=== PATIENT | male | born 1990 | race Caucasian/White ===

== ENCOUNTER 2024-06-11 13:25 | Emergency (ER) | payer OTHER, SELFPAY ==
[2024-06-11 13:36] VITALS: BP 150/78; PULSE 88; RESP 18; TEMP 36.7; O2SAT 100
--- NOTE | 2024-06-11 13:56 | ED_ITS ---
HPI - General Adult General Chief complaint: Extremity Injury, Lower Stated complaint: LT foot Wound Time Seen by Provider: 06/11/24 13:56 Source: patient, RN notes reviewed and old records reviewed Mode of arrival: ambulatory Limitations: no limitations History of Present Illness HPI narrative: 33-year-old male with a history of diabetes presents with left foot laceration. States that he cut it a piece of furniture in the bathroom yesterday morning, over 24 hours ago. Bleeding is controlled. Area is already healing. Patient declined tetanus shot. Unsure of last tetanus Related Data Home Medications Medication Instructions Recorded Confirmed escitalopram oxalate 20 mg tablet 20 mg DIRECTED 06/11/24 06/11/24 insulin aspart (niacinamide) 1 unit DIRECTED 06/11/24 06/11/24 (U-100) 100 unit/mL subcutaneous solution (Fiasp U-100 Insulin) rosuvastatin 10 mg tablet 10 mg DIRECTED 06/11/24 06/11/24 semaglutide (weight loss) 0.25 0.25 mg subcut DIRECTED 06/11/24 06/11/24 mg/0.5 mL subcutaneous pen injector (Wegovy) Allergies Allergy/AdvReac Type Severity Reaction Status Date / Time amoxicillin Allergy Intermediate Hives Verified 06/11/24 13:50 Review of Systems Review of Systems: All systems reviewed & are unremarkable except as noted in HPI and below Constitutional: Constitutional: Reports no additional constitutional complaints ENT: Reports system reviewed and no additional complaints, except as documented Cardiovascular: Cardiovascular: Reports no additional cardiovascular complaints, Denies chest pain and Denies dyspnea Respiratory: Respiratory: Reports no additional respiratory complaints, Denies chest congestion, Denies cough and Denies dyspnea Gastrointestinal: Gastrointestinal: Reports no additional gastrointestinal complaints, Denies abdominal pain, Denies nausea and Denies vomiting Musculoskeletal: Musculoskeletal: Reports no additional musculoskeletal complaints Integumentary/Breasts: Skin/Breast: Reports as per [facility] Past Medical History Medical History (Updated 06/11/24 @ 20:31 by Juana Walsh APRN) Diabetes Comments At the time of my signature, I reviewed and agree with the nursing past medical, surgical, social, and family history. There is no relevant family history pertinent to the patient complaint. Exam Const: General: cooperative, healthy appearing, comfortable, no acute distress, well developed, alert and well nourished Nutritional Appearance: well nourished and obese Orientation/consciousness: patient oriented x3 Limitations: no limitations HENMT: Head: normal to inspection Ears: hearing grossly normal bilaterally and external ears normal Face/Nose/Sinus: Normal external nose present, normal facial exam and face symmetric Face and sinus: normal facial exam and face symmetric Eyes: General: appearance normal, both eyes and all related structures Alignment and Position: alignment normal Periorbital: periorbital findings normal Neck: Neck: normal visual inspection, full ROM, no lymphadenopathy and no meningeal signs Chest: Chest palpation & inspection: normal inspection of the chest Resp: Effort & Inspection: normal respiratory effort and able to speak in complete sentences Cardio: Rate: regular rate Skin: General skin exam: normal color and no rashes or lesions noted Lesions: no lesions Rashes: no rashes Other: Flap of skin noted to the left plantar aspect foot. Occurred over 24 hours ago. Area is already healing. Neuro: General: patient oriented x3, gait normal, tone normal, moves all extremities and no meningeal signs Cognition (Neuro): normal cognition Speech: normal speech Gait exam (Neuro): Normal gait present Extrem: General: normal to inspection, full ROM, capillary refill normal and normal gait Psych: Appearance: grossly normal and well kempt Mental Status: mental status grossly normal Speech and movement: Normal speech and movement present and Clear speech present Affect: normal affect Attitude: cooperative Course Course Level of Care: Express Care Visit Vital Signs Vital signs: Vital Signs Temperature 98.0 F 06/11/24 13:36 Pulse Rate 88 06/11/24 13:36 Respiratory Rate 18 06/11/24 13:36 Blood Pressure 150/78 H 06/11/24 13:36 Pulse Oximetry 100 06/11/24 13:36 Oxygen Delivery Room Air 06/11/24 13:36 Temperature 98.0 F 06/11/24 13:36 Pulse Rate 88 06/11/24 13:36 Respiratory Rate 18 06/11/24 13:36 Blood Pressure 150/78 H 06/11/24 13:36 Pulse Oximetry 100 06/11/24 13:36 Oxygen Delivery Room Air 06/11/24 13:36 Reviewed Medical Decision Making MDM Narrative Medical decision making narrative: Patient sitting comfortably in exam room. Nontoxic, vitals stable. Patient in no acute distress Patient presents for foot laceration over 24 hours ago. Area is already healing. Will prescribe antibiotics for prevention of infection due to high risk as well as patient being diabetic. Instructed patient to follow-up this week with his primary care provider for further evaluation. Discussed in great detail signs and symptoms go the emergency room which he verbalized understanding Discharge instructions reviewed with patient, as well as provided in writing per nursing staff. The instructions also include specific and strict return/GO TO THE ER as well as f/u information. All questions have been answered, and the patient deny any further questions with discharge and discharge plan. Some parts of this dictation were generated by voice recognition software and may contain typographical and/or grammatical inaccuracies. Differential Diagnosis Differential Diagnosis: Laceration Medical Records Medical records reviewed: Yes I reviewed the external patient's medical records. Vital Signs Vital Signs: Vital Signs Temperature 98.0 F 06/11/24 13:36 Pulse Rate 88 06/11/24 13:36 Respiratory Rate 18 06/11/24 13:36 Blood Pressure 150/78 H 06/11/24 13:36 Pulse Oximetry 100 06/11/24 13:36 Oxygen Delivery Room Air 06/11/24 13:36 Temperature 98.0 F 06/11/24 13:36 Pulse Rate 88 06/11/24 13:36 Respiratory Rate 18 06/11/24 13:36 Blood Pressure 150/78 H 06/11/24 13:36 Pulse Oximetry 100 06/11/24 13:36 Oxygen Delivery Room Air 06/11/24 13:36 Reviewed Lab Data Lab results reviewed: Yes I reviewed the patient's lab results. Labs: Reviewed Critical Care Time Critical Care Time Critical Care Time: No Discharge Plan Discharge Clinical Impression: Laceration of foot Qualifiers: Encounter type: initial encounter Laterality: left Qualified Code(s): S91.312A - Laceration without foreign body, left foot, initial encounter Patient Disposition: Home, Self-Care Condition: Stable Instructions: Antibiotic Form, Laceration (ED), Foot Care for People with Diabetes (DC) Additional Instructions: Monitor blood sugars closely Soak your foot to if not 3 times a day in warm soapy water with Epson salt, pat dry. It is important to keep your feet clean. When not at home keep the dressing in place. One at home try leave open to air at least 3 hours per day Take antibiotics as prescribed to reduce the chances of infection Today your blood pressure was 150/78. Please follow-up with your primary care provider within 2 weeks both for a wound check and for a blood pressure check Patient Language: Argentine Prescriptions: New clindamycin HCl 300 mg capsule 300 mg PO TID 7 Days Qty: 21 0RF Rx Instructions: TAKE WITH 150 MG No Action escitalopram oxalate 20 mg tablet 20 mg DIRECTED rosuvastatin 10 mg tablet 10 mg DIRECTED Fiasp U-100 Insulin 100 unit/mL solution 1 unit DIRECTED Wegovy 0.25 mg/0.5 mL pen injector 0.25 mg SUBCUT DIRECTED Follow-up/Referrals: Estevan,Suraj Liu MD [Primary Care Provider] - 2 Weeks (wound check, blood pressure check- 150/78) Stand Alone Forms: Work/School Release IP Time of Disposition: 14:09
== END 2024-06-11 14:14 | disposition home or self-care (01) ==
PROVIDERS: Emergency Provider Nurse Practitioner; PCP Internal Medicine Endocrinology, Diabetes & Metabolism
DX: S91.312A Laceration without foreign body, left foot, initial encounter (principal); W45.8XXA Other foreign body or object entering through skin, initial encounter; E11.9 Type 2 diabetes mellitus without complications; Z79.4 Long term (current) use of insulin
CPT/HCPCS: 99213; G0463